=== PATIENT | female | born 1985 | race African-American/Black ===

== ENCOUNTER 2020-03-19 04:20 | Emergency (ER) | payer OTHER ==
[~2020-03-19] VITALS: Ht 167.6 cm; Wt 104.5 kg
[2020-03-19] MEDS ORDERED: ALBUTEROL 6.7GM HFA INHALER ORI ONE (08:30)
[2020-03-19 09:40] VITALS: BP 138/82
== END 2020-03-19 09:54 | disposition home or self-care (01) ==
LOC: ER 04:20
DX: F41.0 Panic disorder [episodic paroxysmal anxiety] (principal); J45.909 Unspecified asthma, uncomplicated; R03.0 Elevated blood-pressure reading, without diagnosis of hypertension; Z63.79 Other stressful life events affecting family and household; Z59.0 Homelessness
CPT/HCPCS: 71045; 81025; 93005; 94640; 99283